=== PATIENT | female | born 1990 | race Caucasian/White ===

== ENCOUNTER 2016-09-19 11:32 | Emergency (ER) | payer OTHER ==
[~2016-09-19] VITALS: Wt 65.0 kg
[2016-09-19] MEDS ORDERED: PEN500 PO (12:26)
[2016-09-19] MEDS ORDERED: ACET325T33 PO (12:26)
--- NOTE | 2016-09-19 13:53 | ERD ---
ER Documentation Chief Complaint Date/Time DATE: 09/19/16 TIME: 13:50 Chief Complaint COUGH AND SORE THROAT SINCE A FEW DAYS. NO DISTRESS. NO FEVERS HPI This is a 25-year-old female presenting to the emergency department complaining of sore throat and fever for the past 3 days. Patient states that she has ability swelling. She rates as 8 out of 10. She does admit to a cough. She states that she had a fever. But no active fevers now. She has not tried any medications for this ROS All systems reviewed and are negative except as per history of present illness. Medications Home Meds Active Scripts Acetaminophen* (Tylenol*) 325 Mg Tablet, 2 TAB PO Q6 Y for PAIN AND OR ELEVATED TEMP, #20 TAB Prov:CON ESPINOSA PA-C 09/19/16 Penicillin V Potassium* (Penicillin V K*) 500 Mg Tab, 500 MG PO QID for 10 Days , TAB Prov:CON ESPINOSA PA-C 09/19/16 Allergies Allergies: Coded Allergies: No Known Allergies (Verified Allergy, Unknown, 09/19/16) PMhx/Soc History of Surgery: Yes (cholecystectomy) Anesthesia Reaction: No Hx Neurological Disorder: No Hx Respiratory Disorders: No Hx Cardiac Disorders: No Hx Psychiatric Problems: No Hx Miscellaneous Medical Probl: Yes (CHOLELITHIASIS) Hx Alcohol Use: No Hx Substance Use: No Hx Tobacco Use: No Smoking Status: Never smoker Physical Exam Vitals Vital Signs Date Time Temp Pulse Resp B/P Pulse Ox O2 Delivery O2 Flow Rate FiO2 09/19/16 11:37 99.5 98 21 125/60 98 Physical Exam GENERAL: well-developed/well-nourished, in no apparent distress, non-toxic appearing HEAD: NC/AT, no swelling noted in frontal or maxillary areas EARS: bilateral tympanic membrane is intact without erythema or effusion NARES:congested THROAT: oropharynx with exudates; erythematous without exudates, no tonsil enlargement, post nasal drip EYES: Conjunctiva normal NECK: Supple, no lymphadenopathy PULM: CTA bilaterally, no rales, rhonchi, or wheezing heard CV: Normal S1S2, RRR, good capillary refill GI: Soft, non-distended, normal bowel sounds, non-tender BACK: No midline tenderness, no masses EXT No clubbing, cyanosis, or edema NEURO: Alert and Orientated SKIN: Intact, normal turgor PSYCH: Normal mood and mentation Procedures/MDM 25-year-old female presents to the ER with upper respiratory infection with pharyngitis, which is most likely viral however she will be empirically treated for strep pharyngitis due to having soft exudates, history of exudates and left lymphadenopathy however I have told her that it may be viral.. My clinical suspicion is low suspicion for pneumonia, strep pharyngitis, or pulmonary emergencies due to physical examination. Patient's lungs were clear on examination. Patient was given prescription for penicillin. hemodynamically stable for discharge. discussed to return to the ED if not improving as expected or follow-up with a primary care physician. Patient understood and agreed with this plan. Departure Diagnosis: Primary Impression: URI (upper respiratory infection) Additional Impression: Pharyngitis Condition: Stable Patient Instructions: Preventing Common Respiratory Infections Additional Instructions: FOLLOW UP WITH YOUR PRIMARY CARE PHYSICIAN TOMORROW.Return to this facility if you are not improving as expected. Take all medicines as directed. Return to this facility if you are not improving as expected. CON ESPINOSA PA-C Sep 19, 2016 13:53
== END 2016-09-19 12:53 | disposition home or self-care (01) ==
LOC: FTE 11:32
DX: J06.9 Acute upper respiratory infection, unspecified (principal)
CPT/HCPCS: 99283